=== PATIENT | male | born 1940 ===

== ENCOUNTER 2017-09-25 13:59 | Day surgery (SDC) | payer MEDICARE ==
[2017-09-25 10:55] VITALS: BMI 26.6
[2017-09-25 15:04] VITALS: RESP 18
[2017-09-25 15:29] LABS: INR 1.02 (0.93-1.08); PARTIAL THROMBOPLASTIN TIME 29.3 Seconds (25.1-36.5); PROTHROMBIN TIME 11.6 SECONDS (9.4-12.5)
[2017-09-25] MEDS ORDERED: Midazolam 2 MG/2 ML VIAL ONE (15:46)
[2017-09-25] MEDS ORDERED: Oxycodone/Acetaminophen 5/325 mg Tab PO PRN (16:50)
[2017-09-25] MEDS ORDERED: Sodium Chloride 0.45% 1,000 ML IV SCH (17:00)
[2017-09-25 17:31] VITALS: TEMP 97.6
--- NOTE | 2017-09-25 17:38 | CT ---
PROCEDURE: CT guided bone marrow aspiration and biopsy HISTORY: Bicytopenia. Evaluate for myelodysplastic syndrome versus leukemia PHYSICIAN(S): Main Marquez MD. TECHNIQUE: The relative risks and indications of the procedure were explained to the patient and consent obtained. The patient was placed prone on the CT scanner and preliminary images through the pelvis obtained. Conscious sedation and monitoring were provided throughout the procedure by a nurse. The right posterior superior iliac spine was selected for biopsy. A posterior oblique approach was selected and the area prepped and draped in the usual sterile fashion. 1% Xylocaine was used to anesthetize the skin and soft tissues. An on control bone biopsy needle was advanced to the right posterior superior iliac spine its position confirmed with CT. The needle was advanced through the cortex. Bone marrow aspiration and blood clot were performed. Next 2 core biopsies of the left ilium were performed with the on control needle. The slides were prepared by Dr. dunn. The patient tolerated the procedure well. IMPRESSION: 1. CT-guided bone marrow aspiration and biopsy as described above.
[2017-09-25 18:11] VITALS: BP 103/53; PULSE 66; O2SAT 98
--- NOTE | 2017-09-27 14:26 | PROCN ---
DATE: 09/25/2017 INDICATION: This is a 76-year-old [place] male, who was seen by us initially in the office for evaluation of progressive pancytopenia, referred to us by Dr. Ray Prince, where the patient was seen for the first time by us on 08/31/2017, when his blood count was noted to be on the lower side. CBC at that time was noted to be showing a white count of 2.4 with an ANC of 700, hemoglobin of 13.7, hematocrit 40, platelet count was 75,000. The patient had an extensive workup done including flow cytometric analysis, which showed less than 1% of cells which were monoblasts and that was of concern to us and he came back to see me in followup on 09/17/2017. White count was 1.9 with an ANC of 0.6, hemoglobin 12.4, hematocrit 39.6 with platelet count of 57,000. Based on these findings and our concerns, we may be dealing with MDS showing refractory anemia with excess blasts or evolving leukemia. I suggested the patient to come back for a bone marrow aspiration biopsy. I spoke to the daughter, who apparently is a regulatory affairs analyst and I spoke to her in great detail yesterday as she had multiple concerns as to why the bone marrow should be done and why was it not done and I had given her all my reasons as to why it should be done and the patient is here for the procedure. PROCEDURE IN DETAIL: The patient was placed in a prone position and the site elected, which was right posterior superior iliac spine, was identified, cleaned and prepped. The patient received conscious sedation in the interim and Dr. Main Marquez helped us in locating the site through CT-guided imaging. The needle was placed on top of the posterior superior iliac spine on the right side and the the drill directed towards the marrow and core biopsies were obtained, each at least of 2 cm or more with adequate cellularity. In addition to this, the aspirate was also obtained, which was cellular. Smears were made of both the touch prep of the bone marrow biopsy and the aspirate and the specimens have been sent out for both flow cytometric analysis or H&E stains, iron stains and any other additional stains as may be deemed to be necessary based on the initial H and E stains. Array analysis has also been requested if appropriate, provided the patient has MDS. Chromosomal analysis has also been requested. Given all these tests of the patient that has been sent off, the information to the patient's daughter was discussed with her in great detail. The patient tolerated the procedure well and the site was dressed with pressure dressing and the patient is going to be monitored for at least an hour prior to discharge. Followup instructions have been given to the patient and the family. The patient left the room in a satisfactory condition. They will wait for the results of the marrow, which may take about a week's time, specifically for the most sophisticated analysis. DIAGNOSES: At the time of the marrow, pancytopenia, rule out myelodysplastic syndrome, rule out evolving acute myelogenous leukemia. Jennifer Castle MD [email or web address]
== END 2017-09-25 18:15 | disposition home or self-care (01) ==
LOC: SDS 13:59
PROVIDERS: ATTEND Radiology Vascular & Interventional Radiology
DX: D70.9 Neutropenia, unspecified (principal); I10 Essential (primary) hypertension; I25.10 Atherosclerotic heart disease of native coronary artery without angina pectoris; E11.9 Type 2 diabetes mellitus without complications; Z95.1 Presence of aortocoronary bypass graft
CPT/HCPCS: 36415; 38221; 85610; 85730; J2250; J2405; J3010; J7030